=== PATIENT | female | born 1975 | race Caucasian/White ===

== ENCOUNTER → 2022-01-23 10:07 | Outpatient (BNVA) | payer MEDICAID, SELFPAY | PROVIDERS: Family Provider Family Medicine; PCP Nurse Practitioner; Visit Provider Specialist | DX: G43.711 Chronic migraine without aura, intractable, with status migrainosus (principal); M54.50 Low back pain, unspecified; G40.109 Localization-related (focal) (partial) symptomatic epilepsy and epileptic syndromes with simple partial seizures, not intractable, without status epilepticus; F06.8 Other specified mental disorders due to known physiological condition; S06.9X0S Unspecified intracranial injury without loss of consciousness, sequela; F10.21 Alcohol dependence, in remission | CPT/HCPCS: 99205 ==

== ENCOUNTER → 2022-01-30 07:39 | Outpatient (BNVA) | payer MEDICAID, SELFPAY | PROVIDERS: Family Provider Family Medicine; PCP Nurse Practitioner; Referring Provider Specialist; Visit Provider Specialist | DX: G40.109 Localization-related (focal) (partial) symptomatic epilepsy and epileptic syndromes with simple partial seizures, not intractable, without status epilepticus (principal) | CPT/HCPCS: 95812 ==

== ENCOUNTER → 2022-03-05 12:56 | Outpatient (BNVA) | payer MEDICAID, SELFPAY | PROVIDERS: Family Provider Family Medicine; PCP Nurse Practitioner; Visit Provider Specialist | DX: M54.50 Low back pain, unspecified (principal); M79.671 Pain in right foot; M79.672 Pain in left foot; F10.21 Alcohol dependence, in remission; Z86.69 Personal history of other diseases of the nervous system and sense organs; R41.89 Other symptoms and signs involving cognitive functions and awareness; S06.30AS Unspecified focal traumatic brain injury with loss of consciousness status unknown, sequela; X58.XXXS Exposure to other specified factors, sequela | CPT/HCPCS: 99215 ==

== ENCOUNTER 2022-03-24 15:37 | Outpatient (CLI) | payer MEDICAID, SELFPAY ==
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
--- NOTE | 2022-03-24 16:00 | MR_ITS ---
WS: [id number] MRI BRAIN WITHOUT CONTRAST HISTORY: R51.9 - Headache, unspecified COMPARISON: None available. TECHNIQUE: Diffusion imaging, multiplanar T1, T2 and FLAIR imaging obtained. No acute infarct. No acute hemorrhage. Focal area of moderate volume loss with encephalomalacia and g liosis involving the RIGHT temporal lobe with adjacent hemosiderin. No additional infarct or volume loss. Minimal small vessel ischemic changes adjacent to the RIGHT occ ipital horn. Visualized brainstem is negative. No ventriculomegaly. No inferior displacement of cerebellar tonsils. The sella turcica and pituitary gland are unremarkabl e. Dural venous sinuses and soboba of Wallace demonstrate no abnormality on this unenhanced studies. Paranasal sinuses: Moderate mucoperiosteal thickening RIGHT maxillary sinus with no air-fluid level. Mastoid air cells: Normal. Calvarium and scalp: Intact. MR/MR head wo con* [id number] IMPRESSION: 1. No acute infarct or hemorrhage. 2. Encephalomalacia with volume loss, gliosis and hemosiderin involving the RI GHT temporal lobe. Probably from prior trauma. 3. No infarcts. 4. RIGHT maxillary mucoperiosteal thickening.
== END 2022-03-24 15:38 | disposition home or self-care (01) ==
LOC: RAD 15:41
PROVIDERS: PCP Nurse Practitioner; Visit Provider Specialist
DX: R51.9 Headache, unspecified (principal); S06.9XAA Unspecified intracranial injury with loss of consciousness status unknown, initial encounter; X58.XXXA Exposure to other specified factors, initial encounter
CPT/HCPCS: 70551; 72148

== ENCOUNTER → 2022-03-25 14:26 | Outpatient (BNVA) | payer MEDICAID, SELFPAY | PROVIDERS: PCP Nurse Practitioner; Visit Provider Podiatrist Foot & Ankle Surgery | DX: M79.671 Pain in right foot (principal); M79.672 Pain in left foot; G62.9 Polyneuropathy, unspecified | CPT/HCPCS: 73630; 99204 ==

== ENCOUNTER → 2022-04-15 14:36 | Outpatient (BNVA) | payer MEDICAID, SELFPAY | PROVIDERS: PCP Nurse Practitioner; Referring Provider Specialist; Visit Provider Specialist | DX: G62.89 Other specified polyneuropathies (principal) | CPT/HCPCS: 95909; 95911 ==

== ENCOUNTER → 2022-06-17 14:01 | Outpatient (BNVA) | payer MEDICAID, SELFPAY | PROVIDERS: PCP Nurse Practitioner; Visit Provider Specialist | DX: S06.9X0S Unspecified intracranial injury without loss of consciousness, sequela (principal); G40.109 Localization-related (focal) (partial) symptomatic epilepsy and epileptic syndromes with simple partial seizures, not intractable, without status epilepticus; M54.50 Low back pain, unspecified; X58.XXXS Exposure to other specified factors, sequela; F06.70 Mild neurocognitive disorder due to known physiological condition without behavioral disturbance; G40.409 Other generalized epilepsy and epileptic syndromes, not intractable, without status epilepticus; F10.21 Alcohol dependence, in remission; G62.9 Polyneuropathy, unspecified; M72.2 Plantar fascial fibromatosis | CPT/HCPCS: 99213; 99215 ==

== ENCOUNTER → 2023-01-12 15:09 | Outpatient (BNVA) | payer MEDICAID, SELFPAY | PROVIDERS: PCP Nurse Practitioner; Visit Provider Podiatrist Foot & Ankle Surgery | DX: M72.2 Plantar fascial fibromatosis (principal); G62.9 Polyneuropathy, unspecified | CPT/HCPCS: 99213 ==

== ENCOUNTER → 2023-04-10 13:48 | Outpatient (BNVA) | payer MEDICAID, SELFPAY | PROVIDERS: PCP Nurse Practitioner; Visit Provider Nurse Practitioner Family | DX: R21 Rash and other nonspecific skin eruption (principal); M25.50 Pain in unspecified joint; K13.70 Unspecified lesions of oral mucosa; R11.10 Vomiting, unspecified; F19.11 Other psychoactive substance abuse, in remission; R68.89 Other general symptoms and signs | CPT/HCPCS: 80053; 80307; 81000; 85025; 85651; 86140; 86160; 86162; 86235; 86255; 86376; 86431; 87400; 87426 ==

== ENCOUNTER → 2023-04-13 10:04 | Outpatient (BNVA) | payer MEDICAID, SELFPAY | PROVIDERS: PCP Nurse Practitioner; Visit Provider Nurse Practitioner Family | DX: F19.11 Other psychoactive substance abuse, in remission (principal) | CPT/HCPCS: 80307 ==

== ENCOUNTER 2023-04-22 10:35 | Outpatient (CLI) | payer MEDICAID, SELFPAY ==
--- NOTE | 2023-04-22 10:45 | US_ITS ---
WS: [id number] RIGHT UPPER QUADRANT ULTRASOUND HISTORY: F10.20 - Alcohol dependence, uncomplicated COMPARISON: None available. Liver: 17.8 cm in length. Liver is top normal size. No mass or bile duct dilatation. Portal Vein: Normal hepatopetal flow with monophasic waveform. Gallbladder: Normally distended. No wall thickening. Single gallstone identified. CBD: 0.2 cm Pancreas: Normal size and echogenicity. Right kidney: 10.6 cm in length. Normal size and echogenicity. No hydronephrosis or mass. Aorta and IVC: Unremarkable abdominal aorta and IVC. No ascites. IMPRESSION: 1. Cholelithiasis without acute cholecystitis. 2. No bile duct dilatation.
== END 2023-04-22 10:36 | disposition home or self-care (01) ==
LOC: RAD 10:36
PROVIDERS: PCP Nurse Practitioner; Visit Provider Nurse Practitioner Family
DX: F10.20 Alcohol dependence, uncomplicated (principal); K80.20 Calculus of gallbladder without cholecystitis without obstruction
CPT/HCPCS: 76705

== ENCOUNTER → 2023-05-18 14:34 | Outpatient (BNVA) | payer MEDICAID, SELFPAY | PROVIDERS: PCP Nurse Practitioner; Visit Provider Obstetrics & Gynecology | DX: Z01.419 Encounter for gynecological examination (general) (routine) without abnormal findings (principal) | CPT/HCPCS: 87624 ==

== ENCOUNTER → 2023-07-03 13:15 | Outpatient (BNVA) | payer MEDICAID, SELFPAY | PROVIDERS: PCP Nurse Practitioner; Visit Provider Specialist | DX: G43.711 Chronic migraine without aura, intractable, with status migrainosus (principal) | CPT/HCPCS: G0463 ==

== ENCOUNTER → 2023-08-28 13:27 | Outpatient (BNVA) | payer MEDICAID, SELFPAY | PROVIDERS: PCP Nurse Practitioner; Visit Provider Specialist | DX: G40.109 Localization-related (focal) (partial) symptomatic epilepsy and epileptic syndromes with simple partial seizures, not intractable, without status epilepticus (principal); G43.711 Chronic migraine without aura, intractable, with status migrainosus | CPT/HCPCS: 99215; G0463 ==

== ENCOUNTER 2024-03-14 14:23 | Outpatient (CLI) | payer MEDICAID, SELFPAY ==
--- NOTE | 2024-03-14 | MM_ITS ---
WS: [id number] BILATERAL 3D TOMOSYNTHESIS DIGITAL SCREENING MAMMOGRAM WITH CAD CLINICAL INFORMATION: ANNUAL SCREEN HISTORY: Screening mammogram. No current complaints. COMPARISON: Baseline TECHNIQUE: Bilateral CC and MLO. FINDINGS: The breast are composed of extremely dense tissue, which can limit the detection of small underlying mass lesions. No suspicious focal mass, asymmetry, calcifications, or architectural distortion. No ev idence of malignancy. Vascular calcification. MM/MM scr tomosynthesis [id number] IMPRESSION: DENSITY: The breasts are extremely dense, which lowers the sensitivity of mammo graphy. BI-RADS: 2 - Benign FOLLOW UP: 1 Year Follow-up Recommend return to annual screening mammography.
== END 2024-03-14 14:24 | disposition home or self-care (01) ==
LOC: RAD 14:24
PROVIDERS: PCP Nurse Practitioner; Visit Provider Nurse Practitioner
DX: Z12.31 Encounter for screening mammogram for malignant neoplasm of breast (principal); R92.343 Mammographic extreme density, bilateral breasts; R92.1 Mammographic calcification found on diagnostic imaging of breast
CPT/HCPCS: 77063; 77067

== ENCOUNTER 2024-08-22 10:30 | Outpatient (CLI) | payer MEDICAID, SELFPAY ==
--- NOTE | 2024-08-22 10:37 | USR_ITS ---
PROCEDURE INFORMATION: Exam: US Abdomen Complete Exam date and time: 08/22/2024 10:49 AM Age: 48 years old Clinical indication: Abnormal findings; Abnormal lab test; Other: Abnormal finding of blood chemistry TECHNIQUE: Imaging protocol: Real-time ultrasound of the abdomen with image documentation. Complete exam. COMPARISON: US liver [id number] 04/22/2023 10:41 AM FINDINGS: Liver: Normal. No mass. Gallbladder: Normal. No gallstones. There is no gallbladder wall thickening. Biliary ducts: Normal. No stones. No dilation. Pancreas: Visualized pancreas is unremarkable. Right kidney: Normal. No mass. No hydronephrosis. Left kidney: Normal. No mass. No hydronephrosis. Spleen: Poorly visualized. Aorta: Normal. No aneurysm. Inferior vena cava: Normal. US/US abdomen complete* [id number] IMPRESSION: No acute findings.
== END 2024-08-22 10:31 | disposition home or self-care (01) ==
LOC: RAD 10:32
PROVIDERS: PCP Nurse Practitioner; Visit Provider Nurse Practitioner
DX: R79.9 Abnormal finding of blood chemistry, unspecified (principal); F10.99 Alcohol use, unspecified with unspecified alcohol-induced disorder
CPT/HCPCS: 76700